=== PATIENT | female | born 1980 | race Caucasian/White ===

== ENCOUNTER 2019-05-24 19:27 | Emergency (ER) | payer BC, MEDICAID, OTHER ==
[~2019-05-24] VITALS: Ht 175.3 cm; Wt 86.2 kg
--- NOTE | 2019-05-24 20:29 | NUR ---
C/C "I THINK I MIGHT BE ANEMIC", COLD EXTREMITIES, -N/V, +HEADACHE IN BACK TO ER BED 2, VSS, AWAITING MED EVAL
[2019-05-24 20:57] LABS: BASOPHILS % (AUTO) 0.4 % (0.0-2.0); EOSINOPHILS % (AUTO) 1.5 % (0.0-6.0); HEMATOCRIT 36 % (33-45); HEMOGLOBIN 12.1 g/dL (11.5-14.8); LYMPHOCYTES % (AUTO) 24.2 % (20.0-44.0); MEAN CORPUSCULAR HGB CONC 33 g/dl (31.0-36.0); MEAN CORPUSCULAR VOLUME 96 fL (82-100); MONOCYTES # (AUTO) 0.3 /CMM (0.1-1.30); NEUTROPHILS # (AUTO) 2.8 /CMM (1.8-8.9); NEUTROPHILS % (AUTO) 67.9 % (43.0-81.0); PLATELET COUNT (AUTO) 197 /CMM (150-450); RED BLOOD CELL COUNT(AUTO) 3.81 MIL/uL (4.0-5.2); WHITE BLOOD COUNT (AUTO) 4.2 K/uL (4.3-11.0)
[2019-05-24] MEDS ORDERED: IV NS 0.9% 1,000 ML BAG IV ONE (21:00)
[2019-05-24 21:04] LABS: CALCIUM, SERUM 8.7 mg/dL (8.5-10.1); CREATININE 0.9 mg/dL (0.6-1.3); POTASSIUM 3.8 mmol/L (3.5-5.1)
--- NOTE | 2019-05-24 21:48 | NUR ---
Pamela turk in [facility] - 05/24/19 at 2149 by REESE CHRIS SAVAGE AT THE BED SIDE FOR SUTURING
--- NOTE | 2019-05-24 21:48 | NUR ---
Patient discharged to home in stable condition. Written and verbal after care instructions given. Patient verbalizes understanding of instruction.
[2019-05-24 21:49] VITALS: BP 113/81
== END 2019-05-24 21:49 | disposition home or self-care (01) ==
LOC: ER 19:27
DX: R53.1 Weakness (principal); R42 Dizziness and giddiness; Z98.890 Other specified postprocedural states
CPT/HCPCS: 36415; 80048; 85025; 96360; 99283; J7030